=== PATIENT | female | born 1985 | race Caucasian/White ===

== ENCOUNTER 2018-04-09 15:26 | Emergency (ER) | payer BC ==
[2018-04-09 15:37] VITALS: BP 124/85
--- NOTE | 2018-04-09 16:06 | UC ---
Abdominal Pain Female HPI - HPI Summary HPI Summary: 33-year-old woman comes in to clinic today with a complaint of suprapubic and right lower quadrant abdominal pain. Pain started this morning. It's moderate to severe. It is worse with walking and movement of the right leg. No fevers. Patient does not feel like eating but she did not throw up. She did have some diarrhea earlier on. The pain was worse after that. Her last period was 3 -1/2 weeks ago. No abnormal vaginal discharge. She's had no abdominal surgeries. - History of Current Complaint Chief Complaint: UCAbdominalPain Stated Complaint: ABD PAIN Time Seen by Provider: 04/09/18 15:51 Hx Last Menstrual Period: [id number] Pain Intensity: 7 Allergies/Adverse Reactions: Allergies Allergy/AdvReac Type Severity Reaction Status Date / Time No Known Allergies Allergy Verified 04/09/18 15:38 Home Medications: Home Medications Diphenhydra/Phenyleph/Acetamin [Theraflu Nt Severe Cld-Cgh Pkt] 1 each PO DAILY 04/09/18 [History Confirmed 04/09/18] Pnv No.103/Folic/Om3s/Fish Oil [ Gummies] 2 each PO DAILY 04/09/18 [ History Confirmed 04/09/18] PMH/Surg Hx/FS Hx/Imm Hx Previously Healthy: Yes - Surgical History Surgical History: Yes Surgery Procedure, Year, and Place: HAND SURGERY TO REMOVE TUMOR-LEFT - Family History Known Family History: Positive: None - Social History Alcohol Use: None Substance Use Type: None Smoking Status (MU): Never Smoked Tobacco - Immunization History Most Recent Influenza Vaccination: may 2015 Most Recent Tetanus Shot: 07/15/15 Most Recent Pneumonia Vaccination: ref Review of Systems Constitutional: Negative Skin: Negative Eyes: Negative ENT: Negative Respiratory: Negative Cardiovascular: Negative Gastrointestinal: Abdominal Pain - See history present illness Genitourinary: Negative Motor: Negative Neurovascular: Negative Musculoskeletal: Negative Neurological: Negative Psychological: Negative Is Patient Immunocompromised?: No All Other Systems Reviewed And Are Negative: Yes Physical Exam Triage Information Reviewed: Yes Appearance: Well-Appearing, Well-Nourished, Pain Distress - MODERATE WITH MOVEMENT Vital Signs: Initial Vital Signs Temp 98.4 F 04/09/18 15:30 Pulse 87 04/09/18 15:30 Resp 16 04/09/18 15:30 BP 124/85 04/09/18 15:30 Pulse Ox 98 04/09/18 15:30 Vital Signs Reviewed: Yes Eye Exam: Normal Eyes: Positive: Conjunctiva Clear ENT Exam: Normal Neck exam: Normal Neck: Positive: Supple Respiratory Exam: Normal Respiratory: Positive: Lungs clear, Normal breath sounds, No respiratory distress Cardiovascular Exam: Normal Cardiovascular: Positive: RRR Abdomen Description: Positive: Guarding - RLQ, Other: - Negative heel strike on the right. Positive obturator sign on the right. Patient is tender to palpation suprapubic and right lower quadrant. Bowel Sounds: Positive: Present Musculoskeletal Exam: Normal Neurological Exam: Normal Neurological: Positive: Alert Psychological Exam: Normal Psychological: Positive: Age Appropriate Behavior Skin Exam: Normal Abd Pain Female Course/Dx - Course Course Of Treatment: Urine was negative. No obvious UTI on urine exam. I discussed the possibilities of appendicitis or ovarian cyst or ovarian torsion with the patient. I explained to her that we don't have ultrasound here now and any lab work we do does not come back tomorrow indicis a pain that we need to determine the cause of this evening. I recommended going to the emergency department for further evaluation the patient agreed. He plans to go by POV. - Differential Dx/Diagnosis Provider Diagnoses: Right lower quadrant and suprapubic abdominal pain Discharge - Sign-Out/Discharge Documenting (check all that apply): Patient Departure All imaging exams completed and their final reports reviewed: No Studies - Discharge Plan Condition: Stable Disposition: HOME Patient Education Materials: Acute Abdominal Pain (ED) Referrals: Simeon Oliva MD [Primary Care Provider] - Additional Instructions: GO DIRECTLY TO THE EMERGENCY DEPARTMENT FOR FURTHER EVALUATION. - Billing Disposition and Condition Condition: STABLE Disposition: Home
== END 2018-04-09 16:10 | disposition home or self-care (01) ==
LOC: UCEAST 15:26
DX: R10.31 Right lower quadrant pain (principal); R10.30 Lower abdominal pain, unspecified
CPT/HCPCS: 81003; 84702; 99212; G0463

== ENCOUNTER 2018-04-09 16:29 | Emergency (ER) | payer BC ==
[2018-04-09 20:14] LABS: Urine Appearance Clear; Urine Blood Negative (Negative); Urine Color Straw; Urine Ketones Negative (Negative); Urine Protein Negative (Negative); Urine Specific Gravity 1.003 (1.010-1.030); Urine Urobilinogen Negative (Negative)
[2018-04-09] MEDS ORDERED: Metoclopramide IV* 5 MG/ML 2 ML VIAL IV SLOW PU ONE (21:33)
[2018-04-09] MEDS ORDERED: Morphine INJ* 4 MG/ML 1 ML SYRINGE (NEW SYRINGE VERSION) IV ONE (21:33)
[2018-04-09] MEDS ORDERED: NS 0.9% 1000 ML* 1,000 ML IV ONE (21:33)
--- NOTE | 2018-04-09 21:44 | ED ---
Abdominal Pain/Female - HPI Summary HPI Summary: Patient is a 33 y/o F w/ c/o RLQ abdominal pain suddenly onsetting this morning around 0930. Pain is aggravated by movement, coughing and laughing. Pain is described as constant and is noted not to radiate to the back. Patient denies dysuria, hematuria, nausea and vomiting but reports diarrhea and decreased appetite. and menstruation are denied as well. On triage, pain is rated 7/10, nothing is noted to alleviate Sx. Home medications and allergies are reviewed. - History of Current Complaint Chief Complaint: EDAbdPain Stated Complaint: ABD PAIN Time Seen by Provider: 04/09/18 21:22 Hx Obtained From: Patient Hx Last Menstrual Period: [id number] Onset/Duration: Sudden Onset, Lasting Hours - onset 929 today, Still Present Timing: Constant Severity Currently: Severe - 7/10 Pain Intensity: 7 Pain Scale Used: 0-10 Numeric - 7/10 Location: Discrete At: RLQ Radiates: No Aggravating Factor(s): Movement, Other: - coughing, laughing Alleviating Factor(s): Nothing Associated Signs and Symptoms: Positive: Decreased Appetite, Diarrhea, Other: - NEGATIVE: dysuria, hematuria. Negative: Back Pain, Nausea, Vomiting Allergies/Adverse Reactions: Allergies Allergy/AdvReac Type Severity Reaction Status Date / Time No Known Allergies Allergy Verified 04/09/18 15:38 PMH/Surg Hx/FS Hx/Imm Hx Endocrine/Hematology History: Denies: Hx Diabetes, Hx Thyroid Disease Cardiovascular History: Denies: Hx Hypertension, Hx Pacemaker/ICD Respiratory History: Denies: Hx Asthma, Hx Chronic Obstructive Pulmonary Disease (COPD) GI History: Denies: Hx Ulcer History: Denies: Hx Renal Disease Sensory History: Denies: Hx Hearing Aid Psychiatric History: Denies: Hx Panic Disorder - Surgical History Surgery Procedure, Year, and Place: HAND SURGERY TO REMOVE TUMOR-LEFT Infectious Disease History: No Infectious Disease History: Reports: 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 Negative: Vomiting, Nausea Negative: dysuria, hematuria Positive: Other - NEGATIVE: back pain All Other Systems Reviewed And Are Negative: Yes Physical Exam - Summary Physical Exam Summary: VITAL SIGNS: Reviewed. GENERAL: Patient is a well-developed and nourished female who is lying comfortable in the stretcher. Patient is not in any acute respiratory distress. HEAD AND FACE: No signs of trauma. No ecchymosis, hematomas or skull depressions. No sinus tenderness. EYES: PERRLA, EOMI x 2, No injected conjunctiva, no nystagmus. EARS: Hearing grossly intact. Ear canals and tympanic membranes are within normal limits. MOUTH: Oropharynx within normal limits. NECK: Supple, trachea is midline, no adenopathy, no JVD, no carotid bruit, no c- spine tenderness, neck with full ROM. CHEST: Symmetric, no tenderness at palpation LUNGS: Clear to auscultation bilaterally. No wheezing or crackles. CVS: Regular rate and rhythm, S1 and S2 present, no murmurs or gallops appreciated. ABDOMEN: Soft, RLQ tenderness. No signs of distention. No rebound no guarding, and no masses palpated. Bowel sounds are normal. EXTREMITIES: FROM in all major joints, no edema, no cyanosis or clubbing. NEURO: Alert and oriented x 3. No acute neurological deficits. Speech is normal and follows commands. SKIN: Dry and warm Triage Information Reviewed: Yes Vital Signs On Initial Exam: Initial Vitals Temp Pulse Resp BP Pulse Ox 98.0 F 81 19 130/93 98 04/09/18 16:33 04/09/18 16:33 04/09/18 16:33 04/09/18 16:33 04/09/18 16:33 Vital Signs Reviewed: Yes Diagnostics - Vital Signs Vital Signs Temp Pulse Resp BP Pulse Ox 04/09/18 20:34 99.2 F 81 16 148/93 99 04/09/18 18:26 97.7 F 87 16 143/97 97 04/09/18 16:33 98.0 F 81 19 130/93 98 - Laboratory Lab Results: Lab Results 04/09/18 Range/Units 20:00 Urine Color Straw Urine Appearance Clear Urine pH 6.0 (5-9) Ur Specific [place] 1.003 L (1.010-1.030) Urine Protein Negative (Negative) Urine Ketones Negative (Negative) Urine Blood Negative (Negative) Urine Nitrate Negative (Negative) Urine Bilirubin Negative (Negative) Urine Urobilinogen Negative (Negative) Ur Leukocyte Esterase Negative (Negative) Urine Glucose Negative (Negative) Result Diagrams: 04/09/18 21:38 04/09/18 21:38 Lab Statement: Any lab studies that have been ordered have been reviewed, and results considered in the medical decision making process. - CT abd/pel CT CT Interpretation: No Acute Changes CT Interpretation Completed By: Radiologist - no CT findings to correlate with patient's symptomatology, this report was reviewed by ED physician. - Ultrasound No standard instances Ultrasound Interpretation: No Acute Changes Ultrasound Interpretation Completed By: Radiologist - Transvaginal US: sonographically normal uterus and ovaries. No ovarian torsion. This report was reviewed by ED physician. Re-Evaluation - Re-Evaluation First Eval Re-Evaluation Time: 01:23 Change: Improved Comment: patient reports no pain presently; discussed results of labs and tests. Patient will be discharged to home and follow up with PCP in 1-2 days. Patient understands and agrees with this plan. Abdominal Pain Fem Course/Dx - Course Course Of Treatment: Patient is a 33 y/o F w/ c/o RLQ abdominal pain suddenly onsetting this morning around 0930. Pain is aggravated by movement, coughing and laughing. Pain is described as constant and is noted not to radiate to the back. Patient denies dysuria, hematuria, nausea and vomiting but reports diarrhea and decreased appetite. and menstruation are denied as well. On triage, pain is rated 7/10, nothing is noted to alleviate Sx. Physical exam showed RLQ tenderness. During ED course, patient was given fluids, morphine 4 mg IV ED ONCE, reglan 10 mg IV SLOW PU ONCE. UA was negative for any abnormal findings. Bloodwork showed 10 lipase, 27 amylase, WBC 8.7. Transvaginal US: sonographically normal uterus and ovaries. No ovarian torsion. CT abd/pel: no CT findings to correlate with patient's symptomatology, this report was reviewed by ED physician.0123 - patient reports no pain presently; discussed results of labs and tests. Patient will be discharged to home and follow up with PCP in 1-2 days. Patient understands and agrees with this plan. Dx of RLQ abdominal pain. - Diagnoses Provider Diagnoses: Abdominal pain, right lower quadrant Discharge - Sign-Out/Discharge Documenting (check all that apply): Patient Departure - discharge - Discharge Plan Condition: Stable Disposition: HOME Patient Education Materials: Acute Abdominal Pain (ED) Referrals: Simeon Oliva MD [Primary Care Provider] - 2 Days Additional Instructions: RETURN TO THE EMERGENCY DEPARTMENT FOR CHANGING OR WORSENING SYMPTOMS. FOLLOW UP WITH PRIMARY CARE PHYSICIAN IN 1-2 DAYS. - Attestation Statements Document Initiated by Scribe: Yes Documenting Scribe: Anjel Krause Provider For Whom Scribe is Documenting (Include Credential): Rosa Isela Reyna MD Scribe Attestation: IAnjel , scribed for Rosa Isela Reyna MD on 04/10/18 at 0136.
[2018-04-09 21:49] LABS: ABS Basophils 0 10^3/ul (0-0.2); ABS Eosinophils 0.2 10^3/ul (0-0.6); ABS Lymphocytes 2.1 10^3/ul (1.0-4.8); ABS Monocytes 0.9 10^3/ul (0-0.8); ABS Neutrophils 5.5 10^3/ul (1.5-7.7); ABS Nucleated RBC 0 10^3/ul; Eosinophil % 2.3 % (0-6); Hematocrit 41 % (35-47); Hemoglobin 13.9 g/dl (12.0-16.0); Lymphocyte % 24.2 % (25-47); Mean Corpuscular HGB Conc 34 g/dl (31-36); Mean Corpuscular Hemoglobin 31 pg (27-31); Mean Corpuscular Volume 89 fL (80-97); Mean Platelet Volume 9.7 um3 (7.4-10.4); Nucleated Red Blood Cells % 0.1; Platelet Count 192 10^3/ul (150-450); Red Blood Count 4.55 10^6/ul (4.00-5.40); Red Cell Distribution Width 13 % (10.5-15); White Blood Count 8.7 10^3/ul (3.5-10.8)
[2018-04-09] MEDS ORDERED: Iohexol 300* (CONTRAST) 10 ML SDV IV ONE (22:16)
--- NOTE | 2018-04-09 22:58 | RAD ---
EXAM: CT Abdomen and Pelvis With Intravenous Contrast CLINICAL HISTORY: 33 years old, female; Pain; Abdominal pain; Additional info: Abd pain TECHNIQUE: Axial computed tomography images of the abdomen and pelvis with intravenous contrast. All CT scans at this facility use at least one of these dose optimization techniques: automated exposure control; mA and/or kV adjustment per patient size (includes targeted exams where dose is matched to clinical indication); or iterative reconstruction. Coronal and sagittal reformatted images were created and reviewed. CONTRAST: 100 mL of Omni administered intravenously. COMPARISON: No relevant prior studies available. FINDINGS: Lung bases: Normal. No mass. No consolidation. ABDOMEN: Liver: Tiny indeterminate low attenuating focus in segment [place]. No enhancing liver lesions. Normal liver size. Gallbladder and bile ducts: Normal. No radiopaque calculi. No ductal dilation. Pancreas: Normal. No mass. No ductal dilation. Spleen: Normal. No splenomegaly. Adrenals: Normal. No mass. Kidneys and ureters: No renal solid cortical lesions, calculi, or pelvocaliectasis. Stomach and bowel: Incompletely distended grossly normal stomach. Normal caliber small bowel. No colonic masses or segmental wall thickening. PELVIS: Appendix: Normal caliber appendix without wall thickening or adjacent inflammation. Bladder: Thin-walled bladder with no focal nodularity, perivesicular stranding, or calcifications. Reproductive: Uterus and ovaries are normal. ABDOMEN and PELVIS: Intraperitoneal space: Normal. No pneumoperitoneum. No ascities. Bones/joints: No fractures. No suspicious bone lesions. Soft tissues: Normal. No hernias. Vasculature: Normal caliber aorta with no evidence of dissection or rupture. Patent IVC. Circumaortic left renal vein. Lymph nodes: Normal. No enlarged lymph nodes. IMPRESSION: No CT findings to correlate with patient's symptomatology.
--- NOTE | 2018-04-10 01:04 | RAD ---
EXAM: US Pelvis, Transvaginal CLINICAL HISTORY: 33 years old, female; Pain; Pelvic pain; Patient HX: Rlq pain since 9: 30 am today. ; Additional info: Torsion TECHNIQUE: Real-time transvaginal pelvic ultrasound (complete) with image documentation. Transvaginal imaging was used for better evaluation of the endometrium and adnexa. COMPARISON: A/P W CT ABD/PEL W 04/09/2018 10:19 PM FINDINGS: Uterus/cervix: Anteverted anteflexed. Measures 7.5 x 4.8 x 4.0 cm (75 cc). No myometrial masses. Secretory phase endometrium measuring 1.4 cm. Right ovary: Right ovary measures 2.0 x 1.4 x 1.2 cm (1.7 cc). Normal size and echogenicity with no masses. Normal follicles. Normal arterial and venous waveforms. Left ovary: Left ovary measures 3.0 x 1.8 x 1.7 cm (4.8 cc). Normal size and echogenicity with no masses. Normal follicles. Normal arterial and venous waveforms. Free fluid: No free fluid. Bladder: Empty bladder which cannot be evaluated with this probe. IMPRESSION: Sonographically normal uterus and ovaries. No ovarian torsion.
[2018-04-10 01:39] VITALS: BP 100/66
== END 2018-04-10 01:38 | disposition home or self-care (01) ==
LOC: ED 16:29
DX: R10.31 Right lower quadrant pain (principal); R19.7 Diarrhea, unspecified
CPT/HCPCS: 36415; 74177; 76830; 80053; 81003; 82150; 83605; 83690; 83735; 84702; 85025; 85730; 86140; 96374; 96375; 99284; J2270; J2765; Q9967

== ENCOUNTER 2019-01-04 19:38 | Inpatient (IN) | payer BC ==
[2019-01-04] MEDS ORDERED: Acetaminophen TAB* 325 MG PO PRN (20:25)
[2019-01-04] MEDS ORDERED: Glycerin ADULT SUPP PR PRN (20:25)
--- NOTE | 2019-01-04 20:35 | HP ---
General Information - Reason for Visit Labor - General Information Maternal Age: 30 Grav: 1 Para: 0 Estimated Due Date: 01/16/19 Determined By: LMP Gestational Age in Weeks/Days: 38-2/7 Maternal Blood Type and Rh: AB Positive - Results this Serology/RPR Result: Non-Reactive Rubella Result: Immune HBsAg Result: Negative HIV Result: Negative GBS Culture Result: Negative Past Medical History Delivery History: Hx Uncomplicated Vaginal Delivery Delivery History Comment: 09/28/2015 7lbs [place] [facility] [place] Nino [place]M Pertinent Past Medical History: See Records Past Medical History Comment: H/O MRSA 2003 Pertinent Past Surgical History: See Records Past Surgical History Comment: 2011 Hand surgery [place] tooth extraction Pertinent Family History: See Records Family History Comment: Father: HTN Mother: DM, HTN PGM: . Uterine Cancer PGF: . SC MGM: . Heart Disease MGF: . Liver Disease - Antepartal Records Antepartal Records: Reviewed, Complicated by: - GDM A1 Review of Systems Constitutional: Uncomfortable CV Complaint: No Respiratory: Shortness of Breath: No Gastrointestinal: No Nausea/Vomiting, Normal Bowel Movement Genitourinary: No Bleeding, No Leaking Fluid Musculoskeletal: No Complaint, No Epigastric Pain Neurological: No Headache, No Visual Changes Movement: Normal Exam Allergies/Adverse Reactions: Allergies No Known Allergies Allergy (Verified 01/04/19 19:55) Vital Signs 01/04/19 19:53 Temperature 97.4 F Pulse Rate 72 Respiratory 20 Rate Blood Pressure 116/69 (mmHg) - Measurements Height: 5 ft 3 in Weight: 202 lb Body Mass Index (BMI): 35.7 Pre- Weight: 185 lb - Exam Breast: Breast Exam Deferred CVA: No CVA Tenderness Extremities: Edema - bilateral 2+ pitting edema in LE Heart: Normal Rhythm/Heart Sounds HEENT: No Significant Findings Lungs: Clear Bilaterally Rectal: Rectal Exam Deferred Reflexes: DTR 2+ Thyroid: No Thyromegaly - Abdominal Exam Abdomen Exam: Non-Tender, Fundal Height Consistent with Dates - Ultrasound/Biophysical Profile Ultrasound Status: Not Done Targeted Exam Findings See L&D Outpatient Visit Provider Note for Findings: N/A Estimated Weight: EFW 7lbs by Anu Cervical Exam: 8cm Effacement: 100% Station: 0 Presenting Part: Vertex Membrane Status: Bulging Sterile Speculum Exam: Not done Bleeding/Discharge: None EFM Findings - External Monitor Findings Baseline Heart Rate: 135 External Monitor Findings: Accelerations Present, No Pattern of Variable or Late Decelerations, Variability Moderate, Baseline Stable External Monitor Findings Comment: No evidence of metabolic acidemia Contractions: Regular, Strong, >90 Seconds Contraction Frequency: q 2-3 min Assessment/Plan - Assessment IUP at 38-2/7 in active labor, delivery imminent No evidence of metabolic acidemia - Obstetrical Risk Factors Obstetrical Risk Factors: Gestational Diabetes - A1 - Plan Plan: Admit - Anticipate Vaginal Delivery - Date/Time of Admission Date of Admission: 01/04/19 Time of Admission: 19:42
--- NOTE | 2019-01-04 20:40 | PROCNOTE ---
[facility] OB: Delivery Note - Delivery A Date of : 01/04/19 Time of : 20:07 [place] Sex: Male - "Daniel" Score 1 Minute: 9 Score 5 Minutes: 9 Gestational Age in Weeks and Days at Delivery: 38 Weeks and 2 Days Delivery Method: Spontaneous Vaginal Labor: Spontaneous Did Patient attempt ?: N/A, No Previous Amniotic Fluid: Clear Estimated Blood Loss: 300 Anesthesia/Analgesia: None Delivered By: Nino Hitchcock - Nursery Level of Nursery: Regular/Bedside - Perineum Perineal Injury: 1st Degree - repaired with 3-0 Rapide under local infiltration 1% lidocaine. Pt tolerated well Perineal Repair: By Delivering Practioner - Events Delivery Events of Note: Precipitous Delivery - Additional Delivery Notes Additional Delivery Notes: Pt admitted in active labor at 8cm. Spontaneous rupture of membranes to clear fluid with spontaneous pushing. Length of active labor 51 min. Pushed x 3 min. liveborn male. Slow, controlled delivery of head. OA to WALT. Shoulders followed easily. vigorous with spontaneous cry. HR>110bpm. Delivered to maternal abdomen. Cord clamped x 2 and cut by FOB when pulsations ceased. Spontaneous delivery intact placenta. Membranes complete. Fundus firm to massage with minimal bleeding noted. Repair of 1st degree perineal laceration as above. Anatomy restored and good hemostasis achieved. EBL 300mL. At time of note mother and infant in stable condition. Planning to breast feed.
[2019-01-04] MEDS ORDERED: Lactated Ringers 1000 ML Bag* 1,000 ML IV SCH (21:00)
[2019-01-04] MEDS: Dibucaine 1% 28.35 GM TUBE PR PRN (22:50)
[2019-01-04] MEDS: Witch Hazel PAD* JAR TOPICAL PRN (22:50)
[2019-01-04] MEDS ORDERED: Lidocaine 1% INJ* 10 MG/ML 30 ML SDV ONE (22:56)
[2019-01-04] MEDS: Docusate CAP* 100 MG PO SCH (23:32)
[2019-01-04] MEDS: Ibuprofen TAB* 600 MG PO PRN (23:32)
[2019-01-05 07:03] LABS: ABS Lymphocytes 2.1 10^3/ul (1.0-4.8); ABS Monocytes 0.8 10^3/ul (0-0.8); ABS Neutrophils 10.1 10^3/ul (1.5-7.7); Eosinophil % 0.2 %; Hematocrit 36 % (35-47); Hemoglobin 12.3 g/dL (12.0-16.0); Mean Corpuscular HGB Conc 34 g/dL (31-36); Mean Corpuscular Hemoglobin 29 pg (27-31); Mean Corpuscular Volume 87 fL (80-97); Mean Platelet Volume 11.5 fL (7.4-10.4); Platelet Count 112 10^3/uL (150-450); Red Blood Count 4.19 10^6 /uL (3.70-4.87); Red Cell Distribution Width 14 % (10-15)
[2019-01-05] MEDS: Simethicone TAB* 80 MG TAB.CHEW PO SCH ×2 (07:05→21:01)
[2019-01-05] MEDS: Docusate CAP* 100 MG PO SCH ×3 (08:17→20:32)
[2019-01-05] MEDS: Ibuprofen TAB* 600 MG PO PRN ×2 (08:18→19:22)
[2019-01-05] MEDS: Ferrous Gluconate TAB* 324 MG TAB PO SCH ×2 (11:18→20:56)
[2019-01-06] MEDS: Dibucaine 1% 28.35 GM TUBE PR PRN (08:59)
[2019-01-06] MEDS: Ibuprofen TAB* 600 MG PO PRN (08:59)
[2019-01-06] MEDS: Witch Hazel PAD* JAR TOPICAL PRN (08:59)
[2019-01-06] MEDS: Docusate CAP* 100 MG PO SCH (08:59)
[2019-01-06 10:06] VITALS: BP 121/85
== END 2019-01-06 13:30 | disposition home or self-care (01) | DRG 560 ==
LOC: MCHOBOUT 19:38 → MCHOB 19:42
PROVIDERS: ADMIT Midwife; ATTEND Midwife
PROC: 10E0XZZ Delivery of Products of Conception, External Approach (ICD-10-PCS; principal; 2019-01-04)
PROC: 4A1HXCZ Monitoring of Products of Conception, Cardiac Rate, External Approach (ICD-10-PCS; 2019-01-04)
PROC: 0HQ9XZZ Repair Perineum Skin, External Approach (ICD-10-PCS; 2019-01-04)
DX: O24.420 Gestational diabetes mellitus in childbirth, diet controlled (principal); Z37.0 Single live birth; O70.0 First degree perineal laceration during delivery; O62.3 Precipitate labor; Z3A.38 38 weeks gestation of pregnancy; Z86.14 Personal history of Methicillin resistant Staphylococcus aureus infection
CPT/HCPCS: 36415; 85025; A9270-GY